=== PATIENT | female | born 1970 | race Caucasian/White ===

== ENCOUNTER 2023-03-01 20:23 | Outpatient (CLI) | payer MEDICAID, SELFPAY | END 2023-03-01 20:24 | disposition home or self-care (01) | PROVIDERS: PCP Family Medicine; Visit Provider Nurse Practitioner | DX: G47.33 Obstructive sleep apnea (adult) (pediatric) (principal); G47.10 Hypersomnia, unspecified | CPT/HCPCS: 95810 ==